=== PATIENT | female | born 1950 | race Caucasian/White ===

== ENCOUNTER 2016-10-26 16:09 | Inpatient (IN) | payer OTHER ==
[2016-10-26 16:31] LABS: ALLEN TEST YES; BE 4.8 mmoll (-3.0-3.0); BLOOD TYPE ARTERIAL; DRAW SITE R RADIAL; METHB 1.7 % (0.0-1.5); O2(CT) 17.2 mL/dL (15.0-23.0); PCO2(98.6) 48 mmHg (35-45); PO2(98.6) 111 mmHg (60-100); SAMPLE BLOOD; SAO2 99.4 % (95.0-100.0); THB 12.8 g/dL (11.5-17.4); pH(98.6) 7.41 (7.35-7.45)
--- NOTE | 2016-10-26 16:32 | ED EKG INTERP ---
EKG Interpretation - EKG Time of EKG reading by physician:: 16:14 EKG Read and Signed by:: Mason Glover EKG Interpretation (*Must complete 3 of following elements*): Normal Rate: 85 Rhythm: normal sinus rhythm [place]: normal Attestation - Scribe Verification/Attestation Scribe:: Svetlana Troncoso Acting as Scribe for:: Mason Glover Scribe documention review:: This chart was documented by a scribe and accurately reflects the service the provider performed and the decisions made by the provider.
[2016-10-26 16:33] LABS: MODALITY CANNULA
[2016-10-26 16:51] LABS: MANUAL DIFF NEEDED? NO
[2016-10-26 16:51] LABS: URINE CULTURE NEEDED? NO; URINE MICRO REVIEW NEEDED? NO; URINE SOURCE CATH
[2016-10-26 16:56] LABS: BASO% 0.4 % (0.0-0.8); EOS# 0.15 X1000 (0.0-0.7); EOS% 1.9 % (0.0-10.0); HEMATOCRIT 37.3 % (37.0-47.0); HEMOGLOBIN 12.9 g/dL (12.0-16.0); IMM GRAN# 0.02 X1000 (0.0-0.04); IMM GRAN% 0.3 % (0.0-0.5); LYMPH# 1.47 X1000 (1.2-3.4); LYMPH% 18.6 % (20.5-51.1); MCH 32.1 PG (27-31); MCHC 34.6 g/dL (33-37); MCV 92.8 FL (81-99); MONO# 0.72 X1000 (0.11-0.59); MONO% 9.1 % (1.7-9.3); MPV 9.5 FL (7.4-10.4); NEUT% 69.7 % (42.2-75.2); PLT 193 X1000 (130-400); RBC 4.02 XMIL (4.2-5.4)
[2016-10-26 17:00] LABS: UR EPITHELIAL CELLS <10 /HPF (<10); URINE BACTERIA NEGATIVE /HPF; URINE RBC <10 /HPF (<10); URINE WBC <10 /HPF (<10)
[2016-10-26 17:11] LABS: INR 1.07; PROTIME 11.3 Seconds (9.2-11.7); PTT 26.5 Seconds (22.0-36.0)
[2016-10-26 17:11] LABS: UR AMPHETAMINES QUAL NONE DETECTED (NONE DETECT); UR BARBITUATES QUAL NONE DETECTED (NONE DETECT); UR BENZODIAZEPIN QUAL PRESUMPTIVE POSITIVE (NONE DETECT); UR CANNABINOIDS QUAL PRESUMPTIVE POSITIVE (NONE DETECT); UR COCAINE QUAL NONE DETECTED (NONE DETECT); UR METHADONE QUAL NONE DETECTED (NONE DETECT); UR OPIATES QUAL NONE DETECTED (NONE DETECT); UR OXYCODONE QUAL NONE DETECTED (NONE DETECT); UR PCP QUAL NONE DETECTED (NONE DETECT)
[2016-10-26 17:19] LABS: AGAP 11; ALBUMIN 3.3 g/dL (3.5-5.0); ALKALINE PHOSPHATASE 95 U/L (32-104); BUN 13 mg/dL (8-22); CALCIUM 9.4 mg/dL (8.8-10.2); CHLORIDE 95 mmol/L (98-107); COSMO 269; GOT 22 U/L (10-30); GPT 11 U/L (10-36); MAGNESIUM 1.6 mg/dL (1.5-2.7); SODIUM 135 mmol/L (136-145); TCO2 29 mmol/L (25-35); TOTAL BILIRUBIN 0.31 mg/dL (0.20-1.00); TOTAL PROTEIN 7.1 g/dL (6.3-8.3)
[2016-10-26 17:22] LABS: CK PROFILE 470 U/L (24-173)
[2016-10-26 17:25] LABS: FREE T4 1.13 ng/dL (0.93-1.70)
[2016-10-26 17:28] LABS: COLOR YELLOW; TURBIDITY URINE CLEAR (CLEAR)
[2016-10-26 17:30] LABS: BILIRUBIN URINE NEGATIVE (NEGATIVE); BLOOD URINE NEGATIVE (NEGATIVE); GLUCOSE URINE NEGATIVE (NEGATIVE); LEUKOCYTES URINE NEGATIVE (NEGATIVE); NITRITE URINE NEGATIVE (NEGATIVE); PROTEIN URINE NEGATIVE (NEGATIVE); SP GRAVITY URINE >= 1.030; UROBILINOGEN URINE NORMAL (NORMAL)
--- NOTE | 2016-10-26 17:33 | Diag Imaging Result Document ---
PROCEDURE NAME: CHEST-2 VIEWS - 10/26/2016 AP AND LATERAL RADIOGRAPH OF THE CHEST: COMPARISON: 01/31/2016. FINDINGS: There is evidence of prior granulomatous disease, stable. The lungs are grossly clear otherwise. There is no definite pleural fluid collection. Cardiac silhouette and central vasculature are grossly unremarkable. IMPRESSION: No definite acute pathology.
[2016-10-26 17:39] LABS: CK INDEX 1.7 (0.0-2.5); CK-MB 8.22 ng/mL (0.0-5.0)
[2016-10-26] MEDS ORDERED: NS 1,000 ML IV ONE (18:39)
--- NOTE | 2016-10-26 18:52 | PROVIDER DOCUMENTATION ---
HPI-General Adult - General Source: patient - History of Present Illness -Gen Adult Nature of Presenting Problems: Pt is a 66 yof who presents to ER via EMS after being found on the floor at home by her family. Family reports that pt was extremely lethargic, lightly diaphoretic, unresponsive and A/Ox1 to her name. Pt's family reports that this has happened once before, about 4 years ago when pt's "meds got out of whack." Location of Pain/Injury: reports: none Pain Radiation: reports: no radiation Quality of Pain: reports: none Severity: reports: moderate Onset/Duration: reports: just prior to arrival Timing: reports: still present Associated Symptoms: reports: diaphoresis, fatigue, weakness, trouble walking. denies: back/neck pain, chest pain, headaches, heartburn, loss of appetite, muscle aches, nausea, shortness of breath, sensory/motor loss, syncope, vomiting <Elton Canales - Last Filed: 10/26/16 19:32> <Demar Bautista - Last Filed: 10/26/16 19:39> - General Chief Complaint: Unresponsive Stated Complaint: Family found pt lethargic Time Seen by Provider: 10/26/16 16:12 Allergies/Adverse Reactions: Patient Allergies Allergy/AdvReac Type Severity Reaction Status Date / Time Iodinated Contrast Media - Allergy Severe HIVES Verified 10/26/16 16:50 Oral and cephalexin monohydrate * Allergy Intermediate RASH Verified 10/26/16 16:50 [From Keflex] clorazepate dipotassium Allergy Intermediate SWELLING Verified 10/26/16 16:50 [From Tranxene T-Tab] iodine Allergy Intermediate RASH Verified 10/26/16 16:50 Tetanus Vaccines and Toxoid Allergy Intermediate LOCALIZED Verified 10/26/16 16: 50 [Tetanus] REDNESS AND SWELLING Home Medications: Home Medication List Medication Instructions Recorded Confirmed Last Taken Type Carbamazepine [Tegretol] 200 mg PO BID 01/31/16 10/26/16 01/31/16 History Gabapentin [Neurontin] 300 mg PO 4XDAY 01/31/16 10/26/16 01/31/16 History Ergocalciferol (Vitamin D2) 50,000 unit PO Q7D #10 capsule 02/04/16 10/26/16 Unknown Rx [Vitamin D] LISINOpril [Prinivil] 10 mg PO DAILY #60 tablet 02/04/16 10/26/16 Unknown Rx Albuterol Sulfate [Proair Hfa] 8.5 gm IH 4XDAY PRN 10/26/16 10/26/16 Unknown History Albuterol [Albuterol Neb] 1 vial IH 4XDAY PRN 10/26/16 10/26/16 Unknown History Alprazolam [Xanax] 0.5 mg PO TID PRN 10/26/16 10/26/16 Unknown History Budesonide/Formoterol Inhaler 2 puff INH RTBID 10/26/16 10/26/16 Unknown History [Symbicort 160/4.5 Microgm Inhaler] Bupropion HCl [Wellbutrin Xl] 150 mg PO BID 10/26/16 10/26/16 Unknown History Furosemide [Lasix] 20 mg PO DAILY 10/26/16 10/26/16 Unknown History Levothyroxine [Synthroid] 125 microgm PO DAILY 10/26/16 10/26/16 Unknown History Metformin [Glucophage] 500 mg PO BID CC 10/26/16 10/26/16 Unknown History Mometasone/Formoterol [Dulera 100 2 puff INH RTBID 10/26/16 10/26/16 Unknown History Mcg/5 Mcg Inhaler] PRAVAstatin [Pravachol] 10 mg PO QHS 10/26/16 10/26/16 Unknown History Promethazine [Phenergan] 25 mg PO Q6H PRN PRN 10/26/16 10/26/16 Unknown History Review of Systems - Adult - REVIEW OF SYSTEMS - ADULT Constitutional: reports: [place]. denies: chills, fever, night sweats Eyes: reports: no symptoms reported Ears, Nose, Mouth & Throat: reports: no symptoms reported Cardiovascular: denies: chest pain, edema, heart murmur, irregular heart rate, palpitations, syncope Respiratory: denies: cough, dyspnea on exertion, excessive sputum production, hemoptysis, pleurisy, shortness of breath, wheezing Gastrointestinal: reports: no symptoms reported Genitourinary: reports: no symptoms reported Musculoskeletal: reports: no symptoms reported Integumentary: reports: other (diaphoretic; pale). denies: hives, hair loss, itching, mole changes, nail changes, rash, skin sores/ulcer, skin thickening Neurological: reports: loss of balance, syncope. denies: numbness, paresthesia , seizure, slurred speech, tremors Psychiatric: reports: other (A/Ox1; her name only). denies: anxiety, anti- depressant use, alcohol/drug dependence, depression, emotional problems, insomnia, panic attacks, suicidal thoughts Endocrine: reports: no symptoms reported Hematologic/Lymphatic: reports: no symptoms reported Allergic/Immunologic: reports: no symptoms reported All Other Systems: Reviewed and Negative <Elton Canales - Last Filed: 10/26/16 19:32> Past History - Adult - PAST MEDICAL HISTORY-ADULT Review of Records: reports: Nursing Assessment Review, Medications Reviewed Major Childhood Illnesses: reports: other (hep c ) Cardiovascular: reports: HTN Respiratory: reports: COPD Neurological: reports: Seizures/Epilepsy Endocrine/Immune: reports: Diabetes, thyroid disorder (hypo) - PRIOR SURGERIES/PROCEDURES Surgical/Procedure History: reports: appendectomy, cholecystectomy, hysterectomy - IMMUNIZATION STATUS Childhood Immunizations: See Nurse Assessment Flu Vaccine: See Nurse Assessment <Elton Canales - Last Filed: 10/26/16 19:32> Physical Exam-General - PHYSICAL EXAM-ADULT Initial Vital Signs Reviewed: Yes - CONSTITUTIONAL General Appearance: appears well, alert, moderate distress, lethargic, slow to respond - EYES Eyes: pink conjunctivae, fundi clear, no AV nicking - HEAD, EARS, NOSE, MOUTH & THROAT HENMT: normocephalic/atraumatic, moist mucous membranes, normal ENT inspection, TMs normal, pharynx normal - NECK Neck: non-tender, full range of motion, supple - RESPIRATORY Respiratory: chest non-tender, lungs clear, normal breath sounds - CARDIOVASCULAR Cardiovascular: normal peripheral pulses, regular rate, rhythm - MUSCULOSKELETAL Back Exam: no CVA tenderness, no vertebral tenderness - SKIN Integumentary: normal turgor, diaphoresis, pallor. negative: blanching, cyanosis, decubitus, laceration(s), swelling, tenderness, warm - NEUROLOGIC Neurologic: grossly normal, no motor/sensory deficits - PSYCHIATRIC Psych/Mental Status: disheveled, depressed affect, other (A/Ox1 (to her name only)). negative: normal mood/affect, normal thought content, normal thought process, oriented x 3, disoriented x 3 <Canales,Josh - Last Filed: 10/26/16 19:32> Progress - PLAN OF CARE/RESULTS Progress/Plan/Lab Results: Vital Signs - 24 hr 10/26/16 10/26/16 10/26/16 16:10 18:00 18:08 Temperature 96.5 F L Pulse Rate 83 81 83 Pulse Rate [ Sitting] Pulse Rate [ Standing] Pulse Rate [ Supine] Respiratory 25 H 25 H 19 Rate Blood Pressure 130/77 123/72 123/72 Blood Pressure [Sitting] Blood Pressure [Standing] Blood Pressure [Supine] O2 Sat by Pulse 99 97 99 Oximetry 10/26/16 10/26/16 10/26/16 18:30 18:32 18:39 Temperature Pulse Rate 83 82 Pulse Rate [ 85 Sitting] Pulse Rate [ 89 Standing] Pulse Rate [ 81 Supine] Respiratory 22 16 Rate Blood Pressure 130/103 Blood Pressure 103/75 [Sitting] Blood Pressure 88/69 [Standing] Blood Pressure 130/103 [Supine] O2 Sat by Pulse 89 L 87 L Oximetry Orders Category Date Time Status Cardiac Monitoring DIRECTED Care 10/26/16 16:13 Active ED: Orthostatic Vital Signs (E as directed Care 10/26/16 17:42 Active Saline Loc NOW Care 10/26/16 16:13 Active CHEST-2 VIEWS [RAD] Stat Exams 10/26/16 16:13 Draft HEAD W/O CONTRAST [CT] Stat Exams 10/26/16 16:14 Taken ABG [RESP] Routine Lab 10/26/16 16:22 Completed AMMONIA [CHEM] Stat Lab 10/26/16 17:45 Completed BLOOD CULTURE [BLDCUL] Stat Lab 10/26/16 17:45 Results CBC WITH ELECTRONIC DIFF [HEME] Stat Lab 10/26/16 16:30 Completed CK PROFILE [SP CHEM] Stat Lab 10/26/16 16:30 Completed COMPREHENSIVE METABOLIC PANEL [CHEM] Stat Lab 10/26/16 16:30 Completed D-DIMER [CHEM] Stat Lab 10/26/16 16:30 Completed FREE T4 Stat Lab 10/26/16 16:30 Completed MAGNESIUM [CHEM] Stat Lab 10/26/16 16:30 Completed PRO B-NATRIURETIC PEPTIDE Stat Lab 10/26/16 16:30 Completed PROTIME WITH INR [COAG] Stat Lab 10/26/16 16:30 Completed PTT [COAG] Stat Lab 10/26/16 16:30 Completed TROPONIN T Stat Lab 10/26/16 16:30 Completed TSH Stat Lab 10/26/16 16:30 Completed Tegretol [CARBAMAZEPINE] [HH] Stat Lab 10/26/16 18:28 Ordered URINALYSIS W/POSS RFLX CULT [URINALYSIS] Stat Lab 10/26/16 16:20 Completed URINE DRUG SCREEN Stat Lab 10/26/16 16:20 Completed 0.9% Sodium Chloride Inj [Ns] 1,000 ml Med 10/26/16 18:39 Active IV 999 mls/hr EKG [EKG] Stat Ther 10/26/16 16:13 Ordered Laboratory Tests 10/26/16 10/26/16 10/26/16 16:20 16:20 16:22 WBC RBC Hgb Hct MCV MCH MCHC RDW Std Deviation Plt Count MPV Immature Gran % (Auto) Neut % (Auto) Lymph % (Auto) [place] % (Auto) Eos % (Auto) Baso % (Auto) Immature Gran # (Auto) Neut # (Auto) Lymph # (Auto) [place] # (Auto) Eos # (Auto) Baso # (Auto) PT INR PTT (Actin FS) D-Dimer Specimen Type ARTERIAL Sample Site R RADIAL pH 7.41 pCO2 48 H pO2 111 H HCO3 28.6 H Base Excess 4.8 H Oxyhemoglobin 94.5 L ABG O2 Sat (Calculated) 17.2 ABG O2 Saturation 99.4 ABG Carboxyhemoglobin 3.20 H ABG Methemoglobin 1.7 H Ricardo Test YES A-a O2 Difference 57.0 Total Hemoglobin 12.8 Lactate 0.50 Liter Flow 3.0 Blood Gas Modality CANNULA FiO2 % 32.0 Sodium Potassium Chloride Carbon Dioxide Anion Gap BUN Creatinine Estimated GFR/1.73 m2 BUN/Creatinine Ratio Glucose Calculated Osmolality Calcium Magnesium Total Bilirubin AST ALT Alkaline Phosphatase Ammonia Creatine Kinase Creatine Kinase Index CK-MB (CK-2) Troponin T [id number]-Jfzkradmkck Pept Total Protein Albumin Globulin Albumin/Globulin Ratio TSH Free T4 Urine Source CATH Urine Color YELLOW Urine Turbidity CLEAR Urine pH 6.0 Ur Specific [place] >= 1.030 Urine Protein NEGATIVE Ur Glucose (Stick) NEGATIVE Ur Ketones (Stick) NEGATIVE Urine Blood NEGATIVE Urine Nitrite NEGATIVE Urine Bilirubin NEGATIVE Urobilinogen Dipstick NORMAL Urine Leukocytes NEGATIVE Urine WBC (Auto) <10 Urine RBC (Auto) <10 U Epithel Cells (Auto) <10 Urine Bacteria (Auto) NEGATIVE Urine Opiates Screen NONE DETECTED Ur Oxycodone Screen NONE DETECTED Ur Methadone, Qual NONE DETECTED Ur Barbiturates Screen NONE DETECTED Ur Phencyclidine Scrn NONE DETECTED Ur Amphetamines Screen NONE DETECTED U Benzodiazepines Scrn PRESUMPTIVE POSITIVE A Urine Cocaine Screen NONE DETECTED U Cannabinoids Screen PRESUMPTIVE POSITIVE A 10/26/16 10/26/16 10/26/16 16:30 16:30 16:30 WBC 7.91 RBC 4.02 L Hgb 12.9 Hct 37.3 MCV 92.8 MCH 32.1 H MCHC 34.6 RDW Std Deviation 12.7 Plt Count 193 MPV 9.5 Immature Gran % (Auto) 0.3 Neut % (Auto) 69.7 Lymph % (Auto) 18.6 L [place] % (Auto) 9.1 Eos % (Auto) 1.9 Baso % (Auto) 0.4 Immature Gran # (Auto) 0.02 Neut # (Auto) 5.52 Lymph # (Auto) 1.47 [place] # (Auto) 0.72 H Eos # (Auto) 0.15 Baso # (Auto) 0.03 PT INR PTT (Actin FS) D-Dimer 0.46 Specimen Type Sample Site pH pCO2 pO2 HCO3 Base Excess Oxyhemoglobin ABG O2 Sat (Calculated) ABG O2 Saturation ABG Carboxyhemoglobin ABG Methemoglobin Ricardo Test A-a O2 Difference Total Hemoglobin Lactate Liter Flow Blood Gas Modality FiO2 % Sodium 135 L Potassium 4.0 Chloride 95 L Carbon Dioxide 29 Anion Gap 11 BUN 13 Creatinine 0.7 Estimated GFR/1.73 m2 > 60 BUN/Creatinine Ratio 19 Glucose 85 Calculated Osmolality 269 Calcium 9.4 Magnesium 1.6 Total Bilirubin 0.31 AST 22 ALT 11 Alkaline Phosphatase 95 Ammonia Creatine Kinase 470 H Creatine Kinase Index 1.7 CK-MB (CK-2) 8.22 H Troponin T Lys-P-Jmoyaczdxcy Pept Total Protein 7.1 Albumin 3.3 L Globulin 3.8 Albumin/Globulin Ratio 0.9 TSH Free T4 Urine Source Urine Color Urine Turbidity Urine pH Ur Specific [place] Urine Protein Ur Glucose (Stick) Ur Ketones (Stick) Urine Blood Urine Nitrite Urine Bilirubin Urobilinogen Dipstick Urine Leukocytes Urine WBC (Auto) Urine RBC (Auto) U Epithel Cells (Auto) Urine Bacteria (Auto) Urine Opiates Screen Ur Oxycodone Screen Ur Methadone, Qual Ur Barbiturates Screen Ur Phencyclidine Scrn Ur Amphetamines Screen U Benzodiazepines Scrn Urine Cocaine Screen U Cannabinoids Screen 10/26/16 10/26/16 10/26/16 16:30 16:30 16:30 WBC RBC Hgb Hct MCV MCH MCHC RDW Std Deviation Plt Count MPV Immature Gran % (Auto) Neut % (Auto) Lymph % (Auto) [place] % (Auto) Eos % (Auto) Baso % (Auto) Immature Gran # (Auto) Neut # (Auto) Lymph # (Auto) [place] # (Auto) Eos # (Auto) Baso # (Auto) PT 11.3 INR 1.07 PTT (Actin FS) 26.5 D-Dimer Specimen Type Sample Site pH pCO2 pO2 HCO3 Base Excess Oxyhemoglobin ABG O2 Sat (Calculated) ABG O2 Saturation ABG Carboxyhemoglobin ABG Methemoglobin Ricardo Test A-a O2 Difference Total Hemoglobin Lactate Liter Flow Blood Gas Modality FiO2 % Sodium Potassium Chloride Carbon Dioxide Anion Gap BUN Creatinine Estimated GFR/1.73 m2 BUN/Creatinine Ratio Glucose Calculated Osmolality Calcium Magnesium Total Bilirubin AST ALT Alkaline Phosphatase Ammonia Creatine Kinase Creatine Kinase Index CK-MB (CK-2) Troponin T < 0.010 Hnf-T-Ksxyalqbsir Pept 86 Total Protein Albumin Globulin Albumin/Globulin Ratio TSH Free T4 Urine Source Urine Color Urine Turbidity Urine pH Ur Specific [place] Urine Protein Ur Glucose (Stick) Ur Ketones (Stick) Urine Blood Urine Nitrite Urine Bilirubin Urobilinogen Dipstick Urine Leukocytes Urine WBC (Auto) Urine RBC (Auto) U Epithel Cells (Auto) Urine Bacteria (Auto) Urine Opiates Screen Ur Oxycodone Screen Ur Methadone, Qual Ur Barbiturates Screen Ur Phencyclidine Scrn Ur Amphetamines Screen U Benzodiazepines Scrn Urine Cocaine Screen U Cannabinoids Screen 10/26/16 10/26/16 16:30 17:45 WBC RBC Hgb Hct MCV MCH MCHC RDW Std Deviation Plt Count MPV Immature Gran % (Auto) Neut % (Auto) Lymph % (Auto) [place] % (Auto) Eos % (Auto) Baso % (Auto) Immature Gran # (Auto) Neut # (Auto) Lymph # (Auto) [place] # (Auto) Eos # (Auto) Baso # (Auto) PT INR PTT (Actin FS) D-Dimer Specimen Type Sample Site pH pCO2 pO2 HCO3 Base Excess Oxyhemoglobin ABG O2 Sat (Calculated) ABG O2 Saturation ABG Carboxyhemoglobin ABG Methemoglobin Ricardo Test A-a O2 Difference Total Hemoglobin Lactate Liter Flow Blood Gas Modality FiO2 % Sodium Potassium Chloride Carbon Dioxide Anion Gap BUN Creatinine Estimated GFR/1.73 m2 BUN/Creatinine Ratio Glucose Calculated Osmolality Calcium Magnesium Total Bilirubin AST ALT Alkaline Phosphatase Ammonia 17 Creatine Kinase Creatine Kinase Index CK-MB (CK-2) Troponin T Ezj-I-Emyzqrczuum Pept Total Protein Albumin Globulin Albumin/Globulin Ratio TSH 3.97 Free T4 1.13 Urine Source Urine Color Urine Turbidity Urine pH Ur Specific [place] Urine Protein Ur Glucose (Stick) Ur Ketones (Stick) Urine Blood Urine Nitrite Urine Bilirubin Urobilinogen Dipstick Urine Leukocytes Urine WBC (Auto) Urine RBC (Auto) U Epithel Cells (Auto) Urine Bacteria (Auto) Urine Opiates Screen Ur Oxycodone Screen Ur Methadone, Qual Ur Barbiturates Screen Ur Phencyclidine Scrn Ur Amphetamines Screen U Benzodiazepines Scrn Urine Cocaine Screen U Cannabinoids Screen - XRAY 1 XRAY: Bilateral XRAY Study: Chest Impression: See EMR Report XRAY Interpretation: Normal - CT/MRI 1 CT Study: Facial Bones, Sinuses Impression: See EMR Report CT Results: Sinusitis, otherwise NAD - CONSULTS/PCP/HOSPITALIST Notification #1 *Consult/PCP/Hospitalist*: Dr. Chen (Hospitalist) Time Discussed: 19:32 Consult Disposition: Admit <Elton Canales - Last Filed: 10/26/16 19:32> Departure - Departure Time of Disposition Order: 19:33 Certified Medical Emergency: Emergent <Elton Canales - Last Filed: 10/26/16 19:32> - Departure Time of Disposition Order: 19:39 Certified Medical Emergency: Emergent <Demar Bautista - Last Filed: 10/26/16 19:39> - Departure DIAGNOSIS: Altered mental status, Hypoxemia, Orthostatic hypotension Disposition: ADMITTED INPATIENT 09 Condition: Stable Referrals: Archie Lowery MD [Primary Care Provider] - Attestation - Scribe Verification/Attestation Scribe:: Elton Canales Acting as Scribe for:: Demar Bautista Scribe documention review:: This chart was documented by a scribe and accurately reflects the service the provider performed and the decisions made by the provider. <Elton Canales - Last Filed: 10/26/16 19:32> - Physician/ TESSA Attestation Patient care was provided by Advanced Practice Provider:: Yes Advanced Practice Provider:: Demar Bautista Advanced Practice Provider documentation review:: The Mid-level provider documentation, treatment plan and medical decision making was reviewed by the physician who agrees with all treatment and medical decision making by the MLP. The physician spent face to face time with patient:: Yes <Demar Bautista - Last Filed: 10/26/16 19:39> Physician Attestation
[2016-10-26] MEDS ORDERED: MAGNESIUM SULFATE 1 GM/D5W 100 ML IV ONE (19:38)
[2016-10-26] MEDS ORDERED: XANAX PO PRN (22:30)
--- NOTE | 2016-10-26 22:51 | HISTORY AND PHYSICAL ---
CHIEF COMPLAINT: Mental status changes. HISTORY OF PRESENTING ILLNESS: A 66-year-old female with a history of seizure disorder, COPD, diabetes mellitus type 2 and recent diagnosis of breast cancer apparently was found down at her home lethargic and unresponsive, brought to the emergency department in which at that time she seemed to arouse and she became more oriented. She had routine laboratories done which were basically unremarkable. However due to her presenting symptoms, it was thought that she would need hospitalization for further management. At time of my examination she was more alert and oriented x3. She denied having any headache, fever, chills, chest pain, shortness of breath, hemoptysis or weight changes. She does not really know what happened. PAST MEDICAL HISTORY: Includes seizure disorder, COPD, diabetes mellitus type 2 , breast cancer. PAST SURGICAL HISTORY: Hysterectomy, appendectomy, cholecystectomy. ALLERGIES: To Keflex, iodine contrast, Tranxene. CURRENT MEDICATIONS: Listed MAR. SOCIAL HISTORY: Fifty pack years history of smoking. Denies any history alcohol or illicit drug use. FAMILY HISTORY: No history of coronary disease. REVIEW OF SYSTEMS: Twelve point review of systems is as in HPI. Other systems negative. PHYSICAL EXAMINATION: GENERAL: Cooperative, friendly female. She is resting comfortably now. VITAL SIGNS: Pulse 81, respiration 25, blood pressure 123/72, she is saturating 97%. HEENT: Atraumatic, normocephalic. Extraocular movements intact. PERRLA. NECK: Supple. CHEST: Clear to auscultation. CARDIOVASCULAR: Regular rate and rhythm. ABDOMEN: Soft. Positive bowel sounds. EXTREMITIES: No edema. NEURO: She is awake, alert, oriented x3. Speech is intact. Strength 5/5 all extremities. LABORATORIES AND STUDIES: WBC 7.91, hemoglobin 12.9, hematocrit 37.3, platelets 193,000. Sodium 135, potassium 4.0, chloride 95, CO2 of 29, BUN is 13, creatinine 0.7, glucose is 85, UA is negative. Toxicology screen shows benzodiazepines positive and cannabinoids. ASSESSMENT: A 66-year-old female with a history of seizure disorder, chronic obstructive pulmonary disease, diabetes mellitus type 2, recent diagnosis of breast cancer was brought to the emergency department after family found her unresponsive. She however at emergency room had resumed her normal mentation. She was alert, oriented x3. However due to her presenting symptoms she will need hospitalization for further management. 1. Altered mental status unclear etiology. 2. Marijuana and benzodiazepines positive, possibly mental status changes related to substance abuse. 3. Seizure disorder. 4. Diabetes mellitus type 2. 5. Ongoing tobacco abuse. PLAN: 1. Will admit patient to medical floor. 2. Will continue with neuro checks q.4 hours. 3. Continue supportive treatment. 4. Will put patient on seizure precautions. 5. Restart her anti-seizure t agents. 6. Will monitor blood glucose and continue patient on sliding scale insulin regimen. 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 8. Put patient on DVT prophylaxis with SCD. 9. Will continue to follow and reassess. [facility]
[2016-10-27] MEDS: NS 1,000 ML IV SCH ×2 (01:15→10:40)
[2016-10-27] MEDS: SYNTHROID PO SCH (06:39)
[2016-10-27] MEDS: NEURONTIN PO SCH ×6 (06:40→21:28)
--- NOTE | 2016-10-27 06:42 | EKG Report ---
Test Performed on : 10/26/2016 4:14:51 PM Test Reason : ams Blood Pressure : / mmHG Vent. Rate : 085 BPM Atrial Rate : 085 BPM P-R Int : 136 ms QRS Dur : 068 ms QT Int : 396 ms P-R-T Axes : 013 011 059 degrees QTc Int : 471 ms Normal sinus rhythm. Normal ECG When compared with ECG of 13-OCT-2007 07:59, No significant change was found Unconfirmed Result
--- NOTE | 2016-10-27 07:10 | Diag Imaging Result Document ---
PROCEDURE NAME: HEAD W/O CONTRAST - 10/26/2016 CT BRAIN WITHOUT CONTRAST: COMPARISON: Compared to 01/30/2014. FINDINGS: No parenchymal hemorrhage. No epidural or subdural hematoma. No subarachnoid hemorrhage. No hydrocephalus. There are chronic microvascular ischemic changes. I do not identify a mass. Moderate prominent mucosal thickening in the right maxillary sinus. IMPRESSION: 1. No hemorrhage. 2. Mild chronic microvascular ischemic changes. 3. Right maxillary mucosal thickening. A preliminary report was given at 5:44 p.m.
[2016-10-27 07:11] LABS: MANUAL DIFF NEEDED? NO
[2016-10-27 07:19] LABS: BASO% 0.3 % (0.0-0.8); EOS# 0.13 X1000 (0.0-0.7); EOS% 2.3 % (0.0-10.0); HEMATOCRIT 36.1 % (37.0-47.0); HEMOGLOBIN 12.2 g/dL (12.0-16.0); IMM GRAN# 0.02 X1000 (0.0-0.04); IMM GRAN% 0.3 % (0.0-0.5); LYMPH# 1.17 X1000 (1.2-3.4); LYMPH% 20.4 % (20.5-51.1); MCH 31.6 PG (27-31); MCHC 33.8 g/dL (33-37); MCV 93.5 FL (81-99); MONO# 0.59 X1000 (0.11-0.59); MONO% 10.3 % (1.7-9.3); MPV 9.9 FL (7.4-10.4); NEUT% 66.4 % (42.2-75.2); PLT 162 X1000 (130-400); RBC 3.86 XMIL (4.2-5.4)
[2016-10-27 07:43] LABS: AGAP 12; BUN 10 mg/dL (8-22); CALCIUM 8.5 mg/dL (8.8-10.2); CHLORIDE 101 mmol/L (98-107); COSMO 279; MAGNESIUM 1.8 mg/dL (1.5-2.7); POTASSIUM 4.1 mmol/L (3.5-5.1); SODIUM 141 mmol/L (136-145); TCO2 28 mmol/L (25-35)
[2016-10-27] MEDS: PRINIVIL PO SCH ×2 (07:56→09:26)
[2016-10-27] MEDS: WELLBUTRIN XL PO SCH ×3 (07:56→21:26)
[2016-10-27] MEDS: LASIX PO SCH ×2 (07:57→09:25)
[2016-10-27] MEDS: TEGRETOL PO SCH ×3 (07:57→16:56)
[2016-10-27] MEDS: DUONEB (A & A) INH SCH ×4 (11:51→23:39)
[2016-10-27] MEDS ORDERED: TYLENOL PO PRN (13:30)
[2016-10-27] MEDS: NORCO-5 PO PRN (16:42)
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
[2016-10-27] MEDS: PRAVACHOL PO SCH (21:27)
--- NOTE | 2016-10-27 21:56 | PROGRESS NOTE ---
DATE: 10/27/2016 SUBJECTIVE: The patient is awake and alert. She reports that she has been having seizures pretty frequently for the last several weeks. OBJECTIVE: Vital Signs: Temperature 97.5 degrees, blood pressure 108/63, heart rate 77, respirations 20, O2 saturations 100% on 2 L nasal cannula. General: This is an elderly female, lying comfortably in bed, in no acute distress. Head: Normocephalic, atraumatic. Heart: S1, S2 normal. Regular rate and rhythm. Lungs: Clear to auscultation bilaterally. No wheezes, no rales, no rhonchi. Abdomen: Positive bowel sounds. Soft, nontender, nondistended. Extremities: No edema. No cyanosis. No calf tenderness. Neurologic: The patient is alert and oriented x3. LABS: White blood cell count 5.7, hemoglobin 12, hematocrit 36, platelets 162,000. Sodium 141, potassium 4.1, chloride 101, CO2 28, BUN 10, creatinine 0.6, glucose 80, magnesium 1.8, calcium 8.5. ASSESSMENT AND PLAN: 1. Breakthrough seizure activity. The patient's Tegretol level is not therapeutic. The patient has been started back on her home dosage of Tegretol by Dr. Pat. We will continue to monitor the patient closely. 2. Hypothyroidism. Continue on Synthroid. 3. Situational depression. Continue on Wellbutrin. 4. Breast cancer. The patient states that she is scheduled to undergo a mastectomy. We will consult Dr. Borja for further recommendations. 5. Diabetes mellitus type 2. We will start the patient on sliding scale insulin and place the patient on a diabetic diet. 6. Neuropathy. Continue on Neurontin. 7. Gastrointestinal prophylaxis. We will start the patient on Protonix. 8. Deep vein thrombosis prophylaxis. We will start the patient on Lovenox.
[2016-10-28] MEDS: DUONEB (A & A) INH SCH ×6 (03:44→23:12)
[2016-10-28] MEDS: PRILOSEC PO SCH (06:00)
[2016-10-28] MEDS: SYNTHROID PO SCH (06:00)
[2016-10-28 06:06] LABS: HEMATOCRIT 33.9 % (37.0-47.0); HEMOGLOBIN 11.4 g/dL (12.0-16.0); MCH 31.8 PG (27-31); MCHC 33.6 g/dL (33-37); MCV 94.7 FL (81-99); MPV 9.5 FL (7.4-10.4); RBC 3.58 XMIL (4.2-5.4)
[2016-10-28 06:24] LABS: AGAP 12; BUN 8 mg/dL (8-22); CALCIUM 8.7 mg/dL (8.8-10.2); CHLORIDE 100 mmol/L (98-107); COSMO 272; POTASSIUM 4.1 mmol/L (3.5-5.1); SODIUM 137 mmol/L (136-145); TCO2 25 mmol/L (25-35)
--- NOTE | 2016-10-28 06:50 | EEG REPORT ---
DATE: 10/27/2016 EEG NUMBER: [id number] COMMENT: This is a digitally recorded EEG on a 66-year-old patient with reported previous seizures, recently "found down" with question of seizure. FINDINGS: During waking, medium amplitude 10 Hz, posterior rhythm is present symmetrically and reacts at times to eye opening. Background contains polymorphic and rhythmic theta frequencies over the frontal and central regions symmetrically. Some central beta is present infrequently. Drowsing occurred with appearance of more generalized slowing. Stage 2 sleep was recorded with symmetric features. Photic stimulation did not significantly alter the record. No definite epileptiform discharge was identified. INTERPRETATION: Normal electroencephalogram. CORRELATION: The absence of epileptiform discharges on a single EEG does not exclude a clinical diagnosis of seizures.
[2016-10-28] MEDS: WELLBUTRIN XL PO SCH ×2 (08:31→21:45)
[2016-10-28] MEDS: PRINIVIL PO SCH (08:31)
[2016-10-28] MEDS: LASIX PO SCH (08:31)
[2016-10-28] MEDS: TEGRETOL PO SCH ×3 (08:32→16:35)
[2016-10-28] MEDS: NORCO-5 PO PRN (08:32)
[2016-10-28] MEDS: NEURONTIN PO SCH ×4 (08:38→21:46)
[2016-10-28] MEDS: LOVENOX SUBQ SCH (08:39)
--- NOTE | 2016-10-28 10:06 | CONSULTATION ---
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 She was initially scheduled for a mastectomy with sentinel lymph node biopsy tomorrow. However, she was found altered at home by her family and difficult to arouse. She does have a seizure disorder. It was unclear what was happening. Upon presentation, she was found to be hypernatremic. She had UDS positive for benzodiazepines which she took a short course of Xanax due to some family issues causing anxiety and has recently stopped these medications. It was also positive for THC. PAST MEDICAL HISTORY: Seizure disorder, cardiac and lung disease, right breast DCIS, diabetes, tobacco abuse. PAST SURGICAL HISTORY: She has had a previous right breast lumpectomy. SOCIAL HISTORY: Significant for marijuana use, smoking, and I believe a distant history of alcohol. She has lots of family. FAMILY HISTORY: Noncontributory. REVIEW OF SYSTEMS: A 10 point was negative other than what was mentioned in her HPI. PHYSICAL EXAMINATION: Vital Signs: Temperature is 97.5, pulse 77, blood pressure 108/63, oxygen saturation 100% on room air. General: She is arousable but is somewhat drowsy appearing. She speaks appropriately and is oriented. HEENT: There is no scleral icterus. Integument: Otherwise warm and dry. I do not see any jaundice. Abdomen: Soft, nontender, nondistended. LABS: Reviewed. White count was normal at 5, hematocrit was 36, platelets are 162,000. Her ABG yesterday was 7.41, 48, 111, 28.6. Sodium was low at 135 yesterday. It is better at 141 today. Creatinine is normal. The troponins were normal. Ammonia was normal. TSH was normal at 3.63. Urinalysis was negative. Urine drug screen was positive for benzodiazepines and cannabinoids. A CT of the head showed no hemorrhage, some chronic microvascular ischemic changes, and some right maxillary mucosal thickening. ASSESSMENT AND PLAN: A 66-year-old female with right breast ductal carcinoma in situ. Initially scheduled for a right mastectomy with sentinel lymph node tomorrow. I have canceled this case, given her medical issues ongoing. I spoke with the patient about this. It is unclear if she has had a seizure, if this is related to drug intoxication or hyponatremia, or some other acute cerebrovascular event. She seems nonfocal on her examination today. We will continue to follow along. I can reschedule the case when she is medically ready, potentially as soon as this week but most likely it be next. I have discussed this with the patient and her family. She understands and agrees that her medical issues are more pressing currently.
--- NOTE | 2016-10-28 11:17 | Diag Imaging Result Document ---
PROCEDURE NAME: THORACIC SPINE W/O CONTRAST - 10/28/2016 CT OF THE THORACIC SPINE: FINDINGS: There is compression of the upper endplate of the T12 vertebral body. There are some degenerative disk changes at C5-6 and 6-7. This appears to have been present at the time of the previous lateral chest radiograph of 01/30/2014 although it is not well seen on that study. IMPRESSION: Compression fracture of T12 of uncertain age.
[2016-10-28] MEDS: DILAUDID IV PRN ×3 (12:19→21:46)
--- NOTE | 2016-10-28 13:55 | Diag Imaging Result Document ---
PROCEDURE NAME: MRI THORACIC SPINE W/O CONTRAS - 10/28/2016 MRI OF THE THORACIC SPINE: FINDINGS: There is loss of height of the T12 vertebral body, apparently due to subsidence of the upper endplate. There is no evidence of bone marrow edema and this is probably old. There is more conspicuous change in the lower cervical spine and upper thoracic spine with marrow edema in the upper endplate regions of C7, T1 and T2. There is no apparent stenosis and very little change in the height of the vertebral bodies. IMPRESSION: Acute or subacute compression fractures of T1 and T2, and possibly of C7.
[2016-10-28] MEDS: ZOFRAN IV PRN ×2 (14:15→18:50)
--- NOTE | 2016-10-28 14:35 | Diag Imaging Result Document ---
PROCEDURE NAME: MRI LUMBAR SPINE W/O CONTRAST - 10/28/2016 MRI OF THE LUMBAR SPINE: FINDINGS: There is deformity of the T12 vertebral body presumably due to an old compression fracture. The is no apparent bone marrow edema. There is Modic type 1 change in the adjoining endplates anteriorly at the L2-3 level. No intrathecal masses or signal abnormalities are present. At T12-L1, there is no spinal or foraminal stenosis. At L1-2 there is no spinal or foraminal stenosis. At L2-3, there is no spinal or foraminal stenosis. There is noted a cyst laterally of the left kidney at this level. At the L2-3 level, there is no spinal or foraminal stenosis. At L3-4, there is no spinal or foraminal stenosis. At L4-5, there is no spinal or foraminal stenosis. At the L2-3 level, there is some crowding of the nerve roots and mild spinal stenosis due to disk bulge and ligamentum flavum hypertrophy. The foramina do not appear to be stenotic. At the L3-4 level, there is no spinal or foraminal stenosis. At L4-5, there is no spinal or foraminal stenosis. At L5-S1, there is no spinal or foraminal stenosis. IMPRESSION: 1. Degenerative disk disease and mild spinal stenosis at L2-3. 2. Degenerative disk changes at this level as described.
--- NOTE | 2016-10-28 17:20 | PROGRESS NOTE ---
DATE: 10/28/2016 SUBJECTIVE: The patient complains intractable back pain. No further seizure activity noted overnight. OBJECTIVE: Vital Signs: Temperature 97 degrees, blood pressure 133/83, heart rate 79, respirations 18, O2 saturations 96% on room air. General: This is an elderly female, lying in bed, in no acute distress. Head: Normocephalic atraumatic. Heart: S1, S2. Normal. Regular rate and rhythm. Lungs: Clear to auscultation bilaterally. No wheezes, no rales. No rhonchi. Abdomen: Positive bowel sounds. Soft, nontender, nondistended. Extremities: No edema. No cyanosis. No calf tenderness. Neurologic: The patient is alert and oriented x3. No focal neurologic deficits noted. LABS: Hemoglobin 11, hematocrit 33, platelets 154,000. Sodium 137, potassium 4.1, chloride 100, CO2 25, BUN 8, creatinine 0.7, glucose 92, calcium 8.7. ASSESSMENT AND PLAN: 1. Acute compression fracture of T1 and T2. Will consult Orthopedics. The patient may require a back brace versus possible intervention. We will continue with pain management. 2. Seizure disorder. The patient has not had any further seizures. Continue on Tegretol. 3. Hypothyroidism. Continue on Synthroid. 4. Hypertension. Continue on lisinopril. 5. Breast cancer. Patient is being followed by Dr. Borja who will reschedule her mastectomy for a later date once the patient is medically stable. 6. Deep vein thrombosis prophylaxis. Continue on Lovenox.
--- NOTE | 2016-10-28 17:54 | PROGRESS NOTE ---
DATE: 10/28/2016 Ms. Bejarano has not had any more episodes of altered awareness. She has not had any more behavior that sounds like seizure. I discussed EEG findings, recent clinical course, previous uncertain seizure diagnosis with her daughter later in the day yesterday. We discussed options for newer seizure medicines which would not have the concerns we have with carbamazepine. However, Ms. Bejarano already has a lot of disruption in her life from medical problems and rather than add new seizure medicine now, daughter and I decided best management would be to simply make her carbamazepine dose t.i.d. to provide better levels and to wait until she is more stable medically to consider changing to a newer seizure medicine. I reviewed that rationale with the family and patient at the bedside tonight. She seems to be tolerating the higher dose of carbamazepine at this point. No new suggestions today from a neurologic standpoint. Thank you for allowing me to follow Ms. Bejarano. MTDD
--- NOTE | 2016-10-28 20:09 | CONSULTATION ---
DATE OF CONSULTATION: 10/28/2016 PRIMARY CARE PHYSICIAN: Archie Lowery MD CHIEF ORTHOPEDIC COMPLAINT: Thoracic compression fracture. HISTORY OF PRESENT ILLNESS: This is a 66-year-old female with a history of seizure, COPD, diabetes, breast cancer. She was found at home Thursday to be lethargic and unresponsive. She was then brought to the emergency department where she was evaluated and admitted to the hospitalist for further medical evaluation. Upon obtaining x-rays and further evaluation she was found have a compression fracture in the thoracic area. Orthopedics has been consulted for evaluation of this. PAST MEDICAL HISTORY: ALLERGIES: Keflex, contrast media, Tranxene. PAST SURGERIES: Hysterectomy, appendectomy, gallbladder and carotid. SERIOUS ILLNESSES: Seizures, COPD, diabetes, breast cancer, hypertension. REGULAR MEDICATIONS: Albuterol p.r.n. wheezing, Xanax 0.5 p.r.n. anxiety, Symbicort 2 puffs twice a day, Wellbutrin 150 twice a day, Tegretol 200 twice a day, Lasix 20 once a day, Neurontin 300 once a day, Synthroid 125 once a day, Prinivil 10 once a day, metformin 500 twice a day, Dulera inhaler 2 puffs twice a day, Pravachol 10 one at night, Phenergan p.r.n. nausea. REVIEW OF SYSTEMS: HEENT: She has history of seizures and states she falls frequently. No history of CVA. Respiratory: Has history of COPD, and tobacco abuse. She continues to smoke. Heart: States no history of any heart disorders. Abdomen: No history of any ulcer or digestive disorders. PHYSICAL EXAMINATION: General Appearance: This is a 66-year-old female, alert and oriented. HEENT: Pupils equal, round, reactive. EOMs are intact. Neck: Fair range of motion without adenopathy. She has an old carotid scar. Respiratory: Respirations are clear bilaterally with minimal wheezing. No respiratory distress. Heart: Regular rate and rhythm. Abdomen: Soft, nontender. Bowel sounds present. Back: She states she has had some back pain in her thoracic area for several months. IMPRESSION: Thoracic compression fracture. PLAN: She will continue to be monitored by the hospitalist. Pain medicine if needed. Consultation with Physical Therapy for fitting a brace and ambulatory teaching. She is to followup care in the office in 2 weeks upon discharge. Dictated by Mohsen Batres RN for Prasanna Avendaño MD
[2016-10-28] MEDS: PRAVACHOL PO SCH (21:46)
[2016-10-29] MEDS: DILAUDID IV PRN ×4 (03:22→16:46)
[2016-10-29] MEDS: ZOFRAN IV PRN ×4 (03:24→23:50)
[2016-10-29] MEDS: DUONEB (A & A) INH SCH ×6 (03:53→23:50)
[2016-10-29] MEDS: PRILOSEC PO SCH (06:27)
[2016-10-29] MEDS: SYNTHROID PO SCH (06:27)
--- NOTE | 2016-10-29 08:02 | Diag Imaging Result Document ---
PROCEDURE NAME: LUMBAR SPINE W/O CONTRAST - 10/28/2016 CT OF THE LUMBAR SPINE: FINDINGS: The loss of height due to collapse of the upper endplate of T12 is again noted. There is no evidence of fracture or subluxation in the lumbar spine. There is calcification in the aorta without evidence of aneurysm. There is disk bulge at the L4-5, L3-4, L2-3 and L1-2 levels. No evidence of spinal stenosis is present. There is some apparent atelectasis in the right costophrenic sulcus. IMPRESSION: Compression fracture of T12 of uncertain age. Otherwise, no evidence of acute bony disease.
[2016-10-29 08:09] LABS: HEMOGLOBIN 11.7 g/dL (12.0-16.0); MCH 32.2 PG (27-31); MCHC 33.4 g/dL (33-37); MCV 96.4 FL (81-99); MPV 9.7 FL (7.4-10.4); RBC 3.63 XMIL (4.2-5.4)
[2016-10-29] MEDS: TEGRETOL PO SCH ×3 (08:39→18:32)
[2016-10-29] MEDS: PRINIVIL PO SCH (08:40)
[2016-10-29] MEDS: LASIX PO SCH (08:41)
[2016-10-29] MEDS: WELLBUTRIN XL PO SCH ×2 (08:41→23:47)
[2016-10-29 08:42] LABS: CALCIUM 8.6 mg/dL (8.8-10.2); POTASSIUM 4.3 mmol/L (3.5-5.1)
[2016-10-29] MEDS: NEURONTIN PO SCH ×4 (08:42→23:50)
[2016-10-29] MEDS: LOVENOX SUBQ SCH (08:43)
[2016-10-29] MEDS: MS CONTIN PO SCH ×2 (10:20→23:47)
--- NOTE | 2016-10-29 12:04 | PROGRESS NOTE ---
DATE: 10/29/2016 Ms. Bejarano is awake and alert. She has not had any more episodes. Her back hurts. She does not have any new complaint today. She seems to be tolerating carbamazepine 200 mg on the increased t.i.d. schedule. I do not have any new suggestion from neurologic standpoint today. Thanks for allowing me to follow Ms. Bejarano. MTDD
--- NOTE | 2016-10-29 14:22 | PROGRESS NOTE ---
DATE: 10/29/2016 SUBJECTIVE: Maile Bejarano is a 66-year-old female who I am seeing for edema in her T1 and T2 vertebral superior endplates as well as an old compression fracture of T12. She complains of continued pain about her neck and midback. OBJECTIVE: She is a well-developed, well-nourished female who is alert, oriented, and cooperative with exam. She has no step-offs. Her back is mildly tender in upper thoracic and lower thoracic region. Her bilateral upper extremities and bilateral lower extremities are neurovascularly intact. ASSESSMENT: Stable endplate fractures with no loss of vertebral body height at T1 and T2, with an old compression fracture of T12. PLAN: This should be treated conservatively. There really is not a brace for this without going all the way up from her head down to her thoracic which would be a very cumbersome brace and would likely not be tolerated well by the patient and really would not improve her prognosis significantly. Her best course of action is oral pain medicine and transfer to rehab when medically appropriate. Thank you for allowing me to participate in Ms. Bejarano's care. If I may be of any further assistance please do not hesitate to call. She should followup with me for repeat x-rays of her cervical and thoracic spine in 2 weeks.
--- NOTE | 2016-10-29 15:53 | PROGRESS NOTE ---
DATE: 10/29/2016 SUBJECTIVE: The patient complains of excruciating upper back pain. The patient is currently on IV Dilaudid for pain management. OBJECTIVE: Vital Signs: Temperature 97.1 degrees, blood pressure 104/57, heart rate 101, respirations 20, O2 saturations 94% on 2 L nasal cannula. General: This is an elderly female, lying in bed, in no acute distress. Head: Normocephalic, atraumatic. Heart: S1, S2 normal. Regular rate and rhythm. Lungs: Clear to auscultation bilaterally. No wheezing. No rales. No rhonchi. Abdomen: Positive bowel sounds. Soft, nontender, nondistended. Extremities: No edema. No cyanosis. No calf tenderness. Neurologic: The patient is alert and oriented x3. LABS: White blood cell count 7.3, hemoglobin 11, hematocrit 35, platelets 184,000. Sodium 134, potassium 4.3, chloride 94, CO2 26, BUN 10, creatinine 1, glucose 90. ASSESSMENT AND PLAN: 1. Acute T1 and T2 compression fractures. We will start the patient on MS-Contin for long-acting pain relief. We will continue with Dilaudid IV for breakthrough pain. consulting services project manager has been consulted for rehab placement. The patient will follow up with Dr. Avendaño in 2 weeks. 2. Seizure disorder. The patient has had no further seizures while hospitalized. Continue on Tegretol. Dr. Pat is following. 3. Hypothyroidism. Continue on Synthroid. 4. Breast cancer. The patient will follow up with Dr. Borja to reschedule surgery once her medical issues have been resolved. 5. Deep venous thrombosis prophylaxis. Continue on Lovenox. 6. Continue with physical therapy.
[2016-10-29] MEDS: PRAVACHOL PO SCH (23:47)
[2016-10-30] MEDS: DUONEB (A & A) INH SCH ×6 (02:35→22:36)
[2016-10-30] MEDS: DILAUDID IV PRN ×5 (02:50→22:17)
[2016-10-30] MEDS: ZOFRAN IV PRN ×5 (02:50→20:06)
[2016-10-30] MEDS: SYNTHROID PO SCH (06:32)
[2016-10-30] MEDS: PRILOSEC PO SCH (06:32)
[2016-10-30 07:13] LABS: AGAP 11; BUN 11 mg/dL (8-22); CALCIUM 8.8 mg/dL (8.8-10.2); CHLORIDE 95 mmol/L (98-107); COSMO 266; POTASSIUM 4.2 mmol/L (3.5-5.1); SODIUM 133 mmol/L (136-145); TCO2 27 mmol/L (25-35)
[2016-10-30] MEDS: TEGRETOL PO SCH ×3 (08:42→17:21)
[2016-10-30] MEDS: WELLBUTRIN XL PO SCH ×2 (08:42→20:07)
[2016-10-30] MEDS: NEURONTIN PO SCH ×4 (08:43→20:07)
[2016-10-30] MEDS: LOVENOX SUBQ SCH (08:43)
[2016-10-30] MEDS: MS CONTIN PO SCH (08:44)
[2016-10-30] MEDS: PRINIVIL PO SCH (08:48)
--- NOTE | 2016-10-30 12:24 | PROGRESS NOTE ---
DATE: 10/30/2016 Ms. Bejarano is awake, alert, attentive. She seems a little bit more cheerful today. She reports persistent back pain. There are no new complaints. She has not had any more episodes of altered awareness or neurologic change. I have ordered a carbamazepine level to be done before she is discharged to document that, since we have increased her dose. No other suggestion from a neurologic standpoint today.
--- NOTE | 2016-10-30 18:30 | PROGRESS NOTE ---
DATE: 10/30/2016 SUBJECTIVE: The patient is resting comfortably in bed. She states that her back pain is a lot better. OBJECTIVE: Vital Signs: Temperature 98.2 degrees, blood pressure 140/76, heart rate 82, respirations 16, O2 saturations 99% on room air. General: This is an elderly female, lying comfortably in bed, in no acute distress. Head: Normocephalic atraumatic. Heart: S1, S2. Normal. Regular rate and rhythm. Lungs: Clear to auscultation bilaterally. No wheezes, no rales. No rhonchi. Abdomen: Positive bowel sounds. Soft, nontender, nondistended. Extremities: No edema. No cyanosis. No calf tenderness. Neurologic: The patient is alert and oriented x3. LABORATORY: None. ASSESSMENT AND PLAN: 1. Acute T1 and T2 compression fractures. The patient states that the Dilaudid is helping for her back pain. The plan is for the patient to be discharged to inpatient rehab. The patient will then follow up with Dr. Avendaño in 2 weeks. 2. Seizure disorder. Continue on Tegretol. 3. Hypothyroidism. Continue on Synthroid. 4. Breast cancer. The patient will follow up with Dr. Borja to reschedule her mastectomy. 5. DVT prophylaxis. Continue on Lovenox. 6. Continue with physical therapy. 7. Disposition. The patient will be discharged to rehab as soon as a bed is available.
[2016-10-30] MEDS: PRAVACHOL PO SCH (20:07)
[2016-10-31] MEDS: ZOFRAN IV PRN ×2 (01:33→05:48)
[2016-10-31] MEDS: DILAUDID IV PRN ×2 (03:40→09:13)
[2016-10-31] MEDS: SYNTHROID PO SCH ×2 (05:48→06:04)
[2016-10-31] MEDS: PRILOSEC PO SCH ×2 (05:48→06:04)
[2016-10-31 06:38] LABS: AGAP 17; BUN 10 mg/dL (8-22); CHLORIDE 93 mmol/L (98-107); COSMO 266; POTASSIUM 5.2 mmol/L (3.5-5.1); SODIUM 133 mmol/L (136-145); TCO2 23 mmol/L (25-35)
[2016-10-31] MEDS: DUONEB (A & A) INH SCH ×3 (07:36→11:10)
[2016-10-31 07:48] VITALS: BP 140/72
[2016-10-31] MEDS: WELLBUTRIN XL PO SCH (09:12)
[2016-10-31] MEDS: TEGRETOL PO SCH (09:13)
[2016-10-31] MEDS: NEURONTIN PO SCH (09:14)
[2016-10-31] MEDS: LOVENOX SUBQ SCH (09:14)
--- NOTE | 2016-10-31 11:41 | DISCHARGE SUMMARY ---
ADMISSION DATE: 10/28/2016 DISCHARGE DATE: 10/31/2016 CONSULTATIONS: 1. Dr. Mirella Pat with Neurology. 2. Dr. Giovanny Borja with Surgery. 3. Dr. Avendaño with surgery. PERTINENT PROCEDURES: 1. Head CT showed no hemorrhage, mild chronic microvascular ischemic changes. Right maxillary mucosal thickening. 2. EEG was normal. 3. Lumbar spine CT showed a compression fracture of T12 of uncertain age. 4. Thoracic spine CT showed compression fracture of T12 of uncertain age. 5. Lumbar spine MRI showed degenerative disk disease with mild spinal stenosis at L2-3. Degenerative disk changes at the level as described. 6. Thoracic spine MRI showed acute or subacute compression fractures of T1 and T2, and possibly C7. DISCHARGE DIAGNOSES: 1. Acute T1 and T2 compression fractures. 2. Seizure disorder. 3. Hypothyroidism. 4. Breast cancer. 6. Toxic metabolic encephalopathy. 7. Tobacco abuse. HOSPITAL COURSE: Ms. Bejarano is a 66-year-old female with a past medical history of a seizure disorder, COPD, diabetes mellitus type 2, recent diagnosis of breast cancer. Apparently was found down at her home lethargic and unresponsive, brought to the emergency department which at that time, she seemed to arouse and she became more oriented. She had routine laboratory done in the ED that were basically unremarkable except she did have positive marijuana and benzodiazepine positive urine drug screen. The patient was admitted to the hospital for observation. Dr. Mirella Pat was consulted. They did do a head CT to rule out any metastatic lesions secondary to her breast cancer. It was negative. Patient underwent an EEG that was normal. The patient reported that she had been frequently having seizures for the past several weeks. Her Tegretol level was nontherapeutic. She was placed back on her home dosage by Dr. Pat. Since the patient was supposed to be scheduled for a mastectomy, Dr. Giovanny Borja was brought then. He said the right breast cancer ductal carcinoma in-situ was scheduled for a right mastectomy with sentinel lymph node. The case was canceled given her medical issues, and he can reschedule her case once she is more medically stable. Patient did undergo lumbar thoracic CTs and MRIs that did show acute compression fractures at T1 and T2. She kept complaining of intractable back pain. Orthopedics was consulted, Dr. Avendaño, and he suggested pain medication p.r.n., consultation with Physical Therapy for fitting of a brace and ambulatory teaching, and follow up with him in the office in 2 weeks for repeat x-rays. [employer] Customer Service Representative was brought on board for rehab placement; however, unfortunately due to her positive urine drug screen, she is going home with home health and physical therapy. PHYSICAL EXAMINATION: Vital signs at time of discharge: Temperature is 97.6 degrees, heart rate 90, respirations 20, blood pressure is 140/72, O2 is 100% on room air. DISCHARGE DIET: Diabetic. DISCHARGE MEDICATIONS: 1. Neurontin 300 mg p.o. 4 times a day. 2. Albuterol nebulizer 2.5 mg inhaled 4 times a day p.r.n. 3. ProAir inhaler 8.5 g inhaled 4 times a day p.r.n. 4. Phenergan 25 mg p.o. q.6 hours p.r.n. 5. Xanax 0.5 mg p.o. t.i.d. p.r.n. 6. Wellbutrin XL 150 mg p.o. b.i.d. 7. Dulera 100 mcg 5 mcg inhaler 2 puffs inhaled RT b.i.d. 8. Glucophage 500 mg p.o. b.i.d. 9. Lasix 20 mg p.o. daily. 10. Pravachol 10 mg p.o. at bedtime. 11. Symbicort 2 puffs inhaled RT b.i.d. 12. Synthroid 125 mcg p.o. daily. 13. Vitamin D 68883 units p.o. q. 7 days. 14. Percocet 10/325 one each p.o. q.4 hours p.r.n. 15. Tegretol 200 mg p.o. t.i.d. FOLLOWUP: The patient is being discharged home with home health and PT services. She will need to follow up with her primary care physician, Dr. Archie Lowery, in 1 week. She will need to follow up with Dr. Hardik Avendaño in 2 weeks for repeat x-rays and she will need to follow up with Dr. Borja according to reschedule her mastectomy. The patient has been thoroughly advised against smoking cessation as well as illicit drug use. Dictated by RAMOS Hassan for Alysha Downs MD [facility]
== END 2016-10-31 11:15 | disposition home health service (06) | DRG 100 ==
LOC: EDBD → ED 16:09 → 4N 23:25 → OBSVTOIN 10-28 15:00
PROVIDERS: ATTEND Internal Medicine
DX: G40.909 Epilepsy, unspecified, not intractable, without status epilepticus (principal); G92 Toxic encephalopathy; S22.019A Unspecified fracture of first thoracic vertebra, initial encounter for closed fracture; E11.40 Type 2 diabetes mellitus with diabetic neuropathy, unspecified; S22.029A Unspecified fracture of second thoracic vertebra, initial encounter for closed fracture; E87.0 Hyperosmolality and hypernatremia; D05.91 Unspecified type of carcinoma in situ of right breast; J44.9 Chronic obstructive pulmonary disease, unspecified; I10 Essential (primary) hypertension; E03.9 Hypothyroidism, unspecified; F41.9 Anxiety disorder, unspecified; F43.21 Adjustment disorder with depressed mood; F12.10 Cannabis abuse, uncomplicated; F17.210 Nicotine dependence, cigarettes, uncomplicated; Z79.899 Other long term (current) drug therapy; Z79.84 Long term (current) use of oral hypoglycemic drugs; Z91.81 History of falling; W19.XXXA Unspecified fall, initial encounter
CPT/HCPCS: 70450; 71020; 72128; 72131; 72146; 72148; 80048; 80053; 80156; 81001; 82140; 82550; 82553; 82805; 82948; 83735; 83880; 84439; 84443; 84484; 85025; 85027; 85379; 85610; 85730; 87040; 93005; 94640; 94761; 95816; 96374; G0378; G0480; J1170; J1650; J2405; J3475; J7030; P9612; 80324; 80345; 80346; 80349; 80353; 80358; 80361; 80365; 83992; 97530-GP

== ENCOUNTER 2016-11-13 05:13 | Day surgery (SDC) | payer OTHER ==
[2016-11-11 08:43] LABS: MANUAL DIFF NEEDED? NO
[2016-11-11 08:49] LABS: BASO% 0.7 % (0.0-0.8); EOS# 0.25 X1000 (0.0-0.7); EOS% 3.1 % (0.0-10.0); HEMATOCRIT 39.5 % (37.0-47.0); HEMOGLOBIN 13.7 g/dL (12.0-16.0); IMM GRAN# 0.03 X1000 (0.0-0.04); IMM GRAN% 0.4 % (0.0-0.5); LYMPH# 1.99 X1000 (1.2-3.4); LYMPH% 24.5 % (20.5-51.1); MCH 32.2 PG (27-31); MCHC 34.7 g/dL (33-37); MCV 92.7 FL (81-99); MONO# 0.84 X1000 (0.11-0.59); MONO% 10.3 % (1.7-9.3); MPV 9.7 FL (7.4-10.4); PLT 251 X1000 (130-400); RBC 4.26 XMIL (4.2-5.4)
[2016-11-11 09:08] LABS: AGAP 11; BUN 12 mg/dL (8-22); CALCIUM 9.4 mg/dL (8.8-10.2); CHLORIDE 91 mmol/L (98-107); COSMO 266; POTASSIUM 4.8 mmol/L (3.5-5.1); SODIUM 133 mmol/L (136-145); TCO2 31 mmol/L (25-35)
[2016-11-13] MEDS ORDERED: REGLAN ONE (06:17)
[2016-11-13] MEDS ORDERED: LR 1,000 ML ONE ×2 (06:17→10:05)
[2016-11-13] MEDS ORDERED: PEPCID ONE (06:17)
[2016-11-13] MEDS ORDERED: CLINDAMYCIN 900 MG/NS 50 ML ONE (06:17)
[2016-11-13] MEDS ORDERED: DUONEB (A & A) INH ONE ×2 (07:00→09:33)
[2016-11-13] MEDS ORDERED: METHYLENE BLUE 1% ONE (07:00)
--- NOTE | 2016-11-13 07:59 | Diag Imaging Result Document ---
PROCEDURE NAME: LYMPHOSCINTIGRAPHY W/IMG - 11/13/2016 LYMPHOSCINTIGRAPHY OF THE RIGHT BREAST: COMPARISON: None. FINDINGS: 600 mCi of radiotracer was injected. After the appropriate delay, there was visualization of approximately 3 sentinel lymph nodes in the right axilla. IMPRESSION: Successful lymphoscintigraphy of the right breast.
[2016-11-13] MEDS: MORPHINE ONE ×2 (09:44→09:50)
[2016-11-13] MEDS ORDERED: PHENERGAN ONE (09:51)
[2016-11-13] MEDS ORDERED: EPHEDRINE ONE (10:05)
[2016-11-13] MEDS ORDERED: XYLOCAINE-MPF 2% ONE (10:05)
[2016-11-13] MEDS ORDERED: DECADRON ONE (10:05)
[2016-11-13] MEDS ORDERED: VENTOLIN HFA ONE (10:05)
[2016-11-13] MEDS ORDERED: QUELICIN (DOSE) ONE (10:05)
[2016-11-13] MEDS ORDERED: NEO-SYNEPHRINE ONE (10:05)
[2016-11-13] MEDS ORDERED: ZOFRAN ONE (10:05)
--- NOTE | 2016-11-13 10:20 | OPERATIVE NOTE ---
PROCEDURE DATE: 11/13/2016 DATE OF OPERATION: 11/13/2016. 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 PROCEDURE PERFORMED: 1. Right modified radical mastectomy. 2. A sentinel lymph node biopsy with intraoperative localization. ESTIMATED BLOOD LOSS: 30 mL. ANESTHESIA: General. OPERATIVE INDICATIONS: This is a 66-year-old white female, who had a previous lumpectomy for ductal carcinoma in situ of the right upper outer breast. She never underwent adjuvant radiation or hormonal therapy, and developed new calcifications on mammogram posterior to her resection bed. Biopsy showed DCIS again and, after discussion, she wanted mastectomy. We performed sentinel lymph node biopsy given high-grade features of the DCIS and in the setting of mastectomy in case invasive cancer was found. SPECIMENS: 1. Right breast stitch acosta medial most aspect. 2. [place] lymph node #1. 3. Non sentinel lymph node tissue. 4. [place] lymph node #2. 5. [place] lymph node #3. OPERATIVE FINDINGS: There is no evidence of mass. There was a right lower quadrant periareolar incision. No unexpected findings in the right breast. The ex-vivo count of sentinel lymph node #1 is a blue node and it was 300. The bed count was elevated. [place] lymph node #2 was again blue with a bed count of 6715. There is some non sentinel lymph node tissue that was excised to facilitate the dissection identification of the sentinel nodes. The sentinel lymph node #3 again was blue and ex-vivo count was 2249, and the final bed count was 134. OPERATIVE NOTE: Risks, benefits, alternatives discussed with patient. She consented to the procedure. She was seen in the preoperative area and surgery to be performed was confirmed. Surgical site was marked. She was previously taken to nuclear medicine, and the technetium tracer was injected and localized to right axilla. She was taken to the operating room. A time-out was performed after induction of general anesthesia (antibiotics were confirmed). Methylene blue was injected in the subareolar location, approximately 2 mL to 3 mL of this. The breast and axilla were then prepped with chlorhexidine solution. The hand was excluded and the arm was prepped in the field. She was draped in the usual fashion. We confirmed time-out again. I mapped an elliptical incision around the breast starting just medial to the sternum going out laterally, and encompassing her previous scar in an orientation that would allow for access to the axilla. We then made skin incision with a 10-blade scalpel down to the subcutaneous fat around the entire ellipse of the breast. We placed penetrating towel clamps, elevated the skin flaps. Starting cephalad, we mobilized skin flaps at the level of the clavicle, medially to the sternum, laterally to the latissimus muscle. Inferiorly we went down to the rectus sheath with the medial border of the sternum and laterally out to the latissimus. After adequately defining these boundaries, we inspected the axilla. We did encounter some blue lymphatic channels during the mastectomy portion. We followed these and identified sentinel lymph node #1 which was slightly enlarged. It was blue. Ex-vivo count was only 300, however. Bed count remained elevated, so we looked and found sentinel lymph node #2 which again was blue with a much higher ex-vivo count of 6715. There is some non sentinel lymph node tissue that was encountered and was removed. Bed counts remained high. There was another third blue node identified with an ex-vivo count of 2249. After removal of this node, the bed count decreased to less than 10% at 134. We passed these off labeled appropriately. Then, we completed our mastectomy at the level that we incised the clavipectoral fascia. We removed the pectoralis fascia with the specimen obtaining hemostasis as we went. Larger vessels did require ligation with 3-0 Vicryl sutures. We removed the breast in its entirety, again confirming that the sternum was medial, the latissimus was lateral, rectus sheath was inferior and clavicle was cephalad. There was no gross remaining breast tissue. No gross evidence for disease. The skin flaps were adequate thickness and were viable at the conclusion of the case. We irrigated the wound again, confirmed hemostasis, placed 2 Anish drains (1 anteriorly under the mastectomy flaps and 1 that was posteriorly oriented into the axilla) . Using 2-0 Vicryl sutures after irrigating the wound and confirming hemostasis, we began closing the deep dermal tissue. We obliterated this down to the pectoralis muscle to obliterate the space and close this with interrupted 2-0 Vicryl sutures. The skin was then closed with 4-0 Monocryl sutures. There is no undue tension, but there is no residual redundancy of the flap as well. Her inframammary fold and her superior abdomen did have some mild changes concerning for some superficial fungal infection that is well away from the incision. Applied Dermabond for dressing. A fluffed gauze and Ranulfo wrap were applied, but not too tight, and the drains were placed to suction. Tolerated the procedure well. Sponge, instrument and needle counts were correct x2. I spoke with the family. She has awoken and was transferred to PACU in good condition. [facility]
[2016-11-13] MEDS ORDERED: VENTOLIN HFA INH PRN (10:23)
[2016-11-13] MEDS ORDERED: VITAMIN D PO SCH (10:23)
[2016-11-13] MEDS ORDERED: DIFLUCAN 100 MG/NS 50 ML IV ONE (10:23)
[2016-11-13] MEDS ORDERED: DILAUDID IV ONE (11:17)
[2016-11-13] MEDS: OFIRMEV 1000 MG/ISOTONIC SOLN 100 ML IV SCH ×3 (11:21→22:15)
[2016-11-13] MEDS: ULTRAM PO PRN ×3 (11:23→22:18)
[2016-11-13] MEDS: NEURONTIN PO SCH ×3 (13:13→21:23)
[2016-11-13] MEDS: TEGRETOL PO SCH ×2 (13:13→21:23)
[2016-11-13] MEDS ORDERED: FENTANYL ONE (13:48)
[2016-11-13] MEDS: ZOFRAN IV PRN ×2 (13:50→21:21)
[2016-11-13] MEDS: ALBUTEROL NEB INH PRN ×2 (16:45→20:00)
[2016-11-13] MEDS: GLUCOPHAGE PO SCH (17:08)
[2016-11-13] MEDS ORDERED: DULERA 100 MCG/5 MCG INHALER INH SCH (19:30)
[2016-11-13] MEDS ORDERED: PRAVACHOL PO SCH (21:00)
[2016-11-13] MEDS: PERIDEX MT SCH (21:23)
[2016-11-14] MEDS: SYMBICORT 160/4.5 MICROGM INHALER INH SCH ×2 (00:54→08:24)
[2016-11-14] MEDS: ULTRAM PO PRN ×2 (03:46→10:52)
[2016-11-14] MEDS: OFIRMEV 1000 MG/ISOTONIC SOLN 100 ML IV SCH ×2 (04:00→10:53)
[2016-11-14] MEDS: SYNTHROID PO SCH ×2 (05:56→06:06)
[2016-11-14 06:33] LABS: MANUAL DIFF NEEDED? NO
[2016-11-14 06:39] LABS: BASO% 0.2 % (0.0-0.8); EOS# 0.15 X1000 (0.0-0.7); EOS% 1.6 % (0.0-10.0); HEMATOCRIT 34.9 % (37.0-47.0); HEMOGLOBIN 11.4 g/dL (12.0-16.0); LYMPH# 2.25 X1000 (1.2-3.4); MCH 31.5 PG (27-31); MCHC 32.7 g/dL (33-37); MCV 96.4 FL (81-99); MONO# 0.94 X1000 (0.11-0.59); NEUT% 64.2 % (42.2-75.2); PLT 209 X1000 (130-400); RBC 3.62 XMIL (4.2-5.4)
[2016-11-14 06:53] LABS: AGAP 9; BUN 13 mg/dL (8-22); CALCIUM 8.5 mg/dL (8.8-10.2); CHLORIDE 90 mmol/L (98-107); COSMO 258; POTASSIUM 4.9 mmol/L (3.5-5.1); SODIUM 129 mmol/L (136-145); TCO2 30 mmol/L (25-35)
[2016-11-14 07:47] VITALS: BP 151/77
[2016-11-14] MEDS: ALBUTEROL NEB INH PRN (08:23)
[2016-11-14] MEDS: NEURONTIN PO SCH (08:40)
[2016-11-14] MEDS: PERIDEX MT SCH (08:40)
[2016-11-14] MEDS: GLUCOPHAGE PO SCH (08:40)
[2016-11-14] MEDS: TEGRETOL PO SCH (08:40)
[2016-11-14] MEDS ORDERED: LASIX PO SCH (09:00)
== END 2016-11-14 11:55 | disposition home or self-care (01) ==
LOC: PAT 05:13 → 4N 09:52 → UNDOADMOB 09:52 → UNDODISOB 11-14 11:55 → PAT 11-14 11:55
PROVIDERS: ATTEND Surgery
DX: D05.11 Intraductal carcinoma in situ of right breast (principal); F17.210 Nicotine dependence, cigarettes, uncomplicated; E11.9 Type 2 diabetes mellitus without complications; I10 Essential (primary) hypertension; M19.90 Unspecified osteoarthritis, unspecified site; E78.00 Pure hypercholesterolemia, unspecified
CPT/HCPCS: 78195; 80048; 82948; 85025; 88307; 94640; 94761; 94799; A9520; J0131; J0330; J1100; J1170; J1450; J2270; J2370; J2405; J2550; J3010; J7120; Q9968; S0077